=== PATIENT | female | born 1960 | race Two or more races ===

== ENCOUNTER 2020-11-22 15:18 | Emergency (ER) | payer SELFPAY ==
[~2020-11-22] VITALS: Ht 152.4 cm; Wt 61.0 kg
[2020-11-22] MEDS ORDERED: IV NORMAL SALINE 1000ML BAG 1,000 ML IV ONE (15:30)
[2020-11-22 15:36] LABS: BASO % 0 % (0-3); EOS # 0.1 x10^3/uL (0.0-0.7); EOS % 1 % (0-3); HEMATOCRIT 46.8 % (36.0-47.0); HEMOGLOBIN 15.7 g/dL (12.0-15.5); LYMPH # 5.3 x10^3/uL (1.0-4.8); LYMPH % 54 % (24-48); MEAN CORPUSCULAR HEMOGLOBIN 29 pg (25-35); MEAN CORPUSCULAR HGB CONC 34 g/dL (31-37); MEAN CORPUSCULAR VOLUME 87 fL (79-100); MONO # 0.4 x10^3/uL (0.0-1.1); MONO % 4 % (0-9); NEUT % 41 % (31-73); PLATELET COUNT 304 x10^3/uL (140-400); RED BLOOD COUNT 5.41 x10^6/uL (3.50-5.40); RED CELL DISTRIBUTION WIDTH 13.9 % (11.5-14.5); WHITE BLOOD COUNT 9.8 x10^3/uL (4.0-11.0)
--- NOTE | 2020-11-22 15:41 | ED.ADGEN ---
General Adult HPI: HPI: Patient is a 60 year old female brought in by EMS. Original EMS report stated the patient had a seizure. Patient has no seizure history. History primarily provided by daughter since patient is Korean-speaking. Daughter states that this afternoon after he ate lunch patient took an NSAID that she had from [place] for low back pain. Patient then began to have allergic reaction consisting of pruritic rash and hives. Patient has a known history of allergy to ibuprofen. Took Benadryl with improvement but patient was laying on couch and told daughter she "did not feel well" and daughter decided to call EMS. On their arrival blood sugar was 218. Patient has a history of insulin-dependent diabetes. Was started on atorvastatin about 10 days ago. Otherwise been well and has received both of her Covid vaccines Review of Systems: Review of Systems: All other systems within normal limits except for as noted in the HPI Current Medications: Current Medications Medications (Trade) Dose Ordered Sig/Adeline Start Time Stop Time Status Last Admin Dose Admin Acetaminophen (Tylenol) 650 mg PRN Q4HRS PRN 11/22/20 17:45 Al Hydroxide/Mg Hydroxide (Mylanta Plus Xs) 30 ml PRN DAILY PRN 11/22/20 17:45 Albuterol Sulfate (Ventolin Neb Soln) 2.5 mg PRN Q4HRS PRN 11/22/20 17:45 Ceftriaxone Sodium (Rocephin) 1 gm Q24H 11/22/20 18:00 Diphenhydramine HCl (Benadryl) 25 mg PRN Q4HRS PRN 11/22/20 17:45 Docusate Sodium (Colace) 100 mg PRN BID PRN 11/22/20 17:45 Enoxaparin Sodium (Lovenox 40mg Syringe) 40 mg Q24H 11/22/20 21:00 Guaifenesin (Robitussin) 200 mg PRN Q4HRS PRN 11/22/20 17:45 Ondansetron HCl (Zofran) 4 mg PRN Q4HRS PRN 11/22/20 17:45 Ringer's Solution 500 ml @ 1,000 mls/hr 1X ONCE 11/22/20 16:30 11/22/20 17:30 DC 11/22/20 16:30 1,000 MLS/HR Sodium Monofluorophosphate (Fleet Adult) 133 ml PRN DAILY PRN 11/22/20 17:45 Sodium Chloride 1,000 ml @ 100 mls/hr Q10H 11/22/20 17:45 Sodium Chloride (Normal Saline Flush) 3 ml QSHIFT PRN 11/22/20 17:45 Allergies: Allergies: Allergies Coded Allergies Type Severity Reaction Last Updated Verified ibuprofen Allergy Intermediate 11/22/20 Yes Physical Exam: PE: Constitutional: Well developed, well nourished, no acute distress, non-toxic appearance. [] HENT: Normocephalic, atraumatic, bilateral external ears normal, nose normal. [] Eyes: PERRLA, conjunctiva normal, no discharge. [] Neck: No rigidity, supple, no stridor. [] Cardiovascular: Regular rate and rhythm, brisk cap refill [] Lungs & Thorax: Non labored symmetric respirations, no tachypnea or respiratory distress [] Abdomen: Soft, nondistended. Skin: Warm, dry, no erythema, no rash. [] Back: Unremarkable Extremities: No deformities, range of motion grossly intact, no lower extremity edema [] Neurologic: Alert and oriented X 3, no focal deficits noted. [] Psychologic: Affect normal, judgement normal, mood normal. [] Current Patient Data: Labs: Laboratory Tests Test 11/22/20 15:25 11/22/20 16:39 11/22/20 17:37 White Blood Count 9.8 x10^3/uL (4.0-11.0) Red Blood Count 5.41 x10^6/uL (3.50-5.40) H Hemoglobin 15.7 g/dL (12.0-15.5) H Hematocrit 46.8 % (36.0-47.0) Mean Corpuscular Volume 87 fL (79-100) Mean Corpuscular Hemoglobin 29 pg (25-35) Mean Corpuscular Hemoglobin Concent 34 g/dL (31-37) Red Cell Distribution Width 13.9 % (11.5-14.5) Platelet Count 304 x10^3/uL (140-400) Neutrophils (%) (Auto) 41 % (31-73) Lymphocytes (%) (Auto) 54 % (24-48) H Monocytes (%) (Auto) 4 % (0-9) Eosinophils (%) (Auto) 1 % (0-3) Basophils (%) (Auto) 0 % (0-3) Neutrophils # (Auto) 4.0 x10^3/uL (1.8-7.7) Lymphocytes # (Auto) 5.3 x10^3/uL (1.0-4.8) H Monocytes # (Auto) 0.4 x10^3/uL (0.0-1.1) Eosinophils # (Auto) 0.1 x10^3/uL (0.0-0.7) Basophils # (Auto) 0.0 x10^3/uL (0.0-0.2) Sodium Level 143 mmol/L (136-145) Potassium Level 3.2 mmol/L (3.5-5.1) L Chloride Level 105 mmol/L (98-107) Carbon Dioxide Level 23 mmol/L (21-32) Anion Gap 15 (6-14) H Blood Urea Nitrogen 18 mg/dL (7-20) Creatinine 1.2 mg/dL (0.6-1.0) H Estimated GFR (Cockcroft-Gault) 45.7 BUN/Creatinine Ratio 15 (6-20) Glucose Level 304 mg/dL (70-99) H Lactic Acid Level 5.3 mmol/L (0.4-2.0) *H Calcium Level 9.0 mg/dL (8.5-10.1) Phosphorus Level 4.8 mg/dL (2.6-4.7) H Magnesium Level 1.9 mg/dL (1.8-2.4) Total Bilirubin 0.4 mg/dL (0.2-1.0) Aspartate Amino Transferase (AST) 19 U/L (15-37) Alanine Aminotransferase (ALT) 24 U/L (14-59) Alkaline Phosphatase 88 U/L (46-116) Creatine Kinase 58 U/L (26-192) Myoglobin 79 ng/mL (9-82) Troponin I Quantitative < 0.017 ng/mL (0.000-0.055) Total Protein 6.7 g/dL (6.4-8.2) Albumin 3.9 g/dL (3.4-5.0) Albumin/Globulin Ratio 1.4 (1.0-1.7) Thyroid Stimulating Hormone (TSH) 5.547 uIU/mL (0.358-3.74) H Free Thyroxine 1.11 ng/dL (0.76-1.46) Free Triiodothyronine (T3) pg/mL 2.69 pg/mL (2.18-3.98) Ethyl Alcohol Level < 10 mg/dL (0-10) Urine Collection Type Unknown Urine Color Yellow Urine Clarity Cloudy Urine pH 7.0 (<5.0-8.0) Urine Specific Dennison 1.025 (1.000-1.030) Urine Protein >=300 mg/dL (NEG-TRACE) Urine Glucose (UA) >=1000 mg/dL (NEG) Urine Ketones (Stick) Negative mg/dL (NEG) Urine Blood Negative (NEG) Urine Nitrite Negative (NEG) Urine Bilirubin Small (NEG) Urine Urobilinogen Dipstick 1.0 mg/dL (0.2 mg/dL) Urine Leukocyte Esterase Small (NEG) Urine RBC Occ /HPF (0-2) Urine WBC 1-4 /HPF (0-4) Urine Squamous Epithelial Cells Few /LPF Urine Amorphous Sediment Present /HPF Urine Bacteria Few /HPF (0-FEW) Urine Hyaline Casts Few /HPF Urine Mucus Slight /LPF Urine Opiates Screen Neg (NEG) Urine Methadone Screen Neg (NEG) Urine Barbiturates Neg (NEG) Urine Phencyclidine Screen Neg (NEG) Urine Amphetamine/Methamphetamine Neg (NEG) Urine Benzodiazepines Screen Neg (NEG) Urine Cocaine Screen Neg (NEG) Urine Cannabinoids Screen Neg (NEG) Urine Ethyl Alcohol Neg (NEG) POC Venous pH 7.28 (7.32-7.42) L POC Venous pCO2 59 mmHg (41-51) H POC Venous pO2 38 mmHg (20-40) Venous Blood HCO3 28 mmol/L (24-28) POC Venous O2 Saturation (Fransisco) 64 % POC FiO2 21.0 Laboratory Tests 11/22/20 15:25 Laboratory Tests 11/22/20 15:25 Vital Signs: Vital Signs Date Time Temp Pulse Resp B/P (MAP) Pulse Ox O2 Delivery O2 Flow Rate FiO2 11/22/20 16:30 80 18 97/54 (68) 97 Room Air 11/22/20 16:15 97.4 97.4 EKG: EKG: Sinus rhythm, heart rate 85 beats minute, normal axis, no ST elevation or depression, borderline QT interval. [] Heart Score: C/O Chest Pain: No Risk Factors: Risk Factors: DM, Current or recent (<one month) smoker, HTN, HLP, family history of CAD, obesity. Risk Scores: Score 0 - 3: 2.5% MACE over next 6 weeks - Discharge Home Score 4 - 6: 20.3% MACE over next 6 weeks - Admit for Clinical Observation Score 7 - 10: 72.7% MACE over next 6 weeks - Early Invasive Strategies Radiology/Procedures: Radiology/Procedures: [] Course & Med Decision Making: Course & Med Decision Making Pertinent Labs and Imaging studies reviewed. (See chart for details) Patient's temperature gradually coming up from 96 Fahrenheit by mouth. Patient refusing head CT and chest x-ray. Warm fluids and warm blankets. Uncertain etiology of patient's elevated lactate. Will admit to hospitalist for further evaluation and observation [] Chris Disclaimer: Chris Disclaimer: This electronic medical record was generated, in whole or in part, using a voice recognition dictation system. Departure Departure Impression: Primary Impression: Hypothermia Additional Impression: Lactic acidosis Disposition: ADMITTED INPATIENT Admitting Physician: JOHAN Condition: GUARDED Referrals: JOE COOK JR, MD (PCP) Problem Qualifiers IKER DUDLEY MD Nov 22, 2020 15:41
--- NOTE | 2020-11-22 15:49 | EKG ---
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
[2020-11-22 15:56] LABS: CREATININE 1.2 mg/dL (0.6-1.0); GFR 45.7; POTASSIUM 3.2 mmol/L (3.5-5.1)
[2020-11-22 16:10] LABS: ALBUMIN 3.9 g/dL (3.4-5.0); ALBUMIN/GLOBULIN RATIO 1.4 (1.0-1.7); MAGNESIUM 1.9 mg/dL (1.8-2.4); PHOSPHORUS 4.8 mg/dL (2.6-4.7); TOTAL BILIRUBIN 0.4 mg/dL (0.2-1.0); TOTAL PROTEIN 6.7 g/dL (6.4-8.2)
[2020-11-22] MEDS ORDERED: IV RINGERS,LACTATED 500ML 500 ML IV ONE (16:30)
--- NOTE | 2020-11-22 16:47 | PDOC1 ---
History and Physical Date of Admission Date of Admission DATE: 11/22/20 TIME: 16:47 Identification/Chief Complaint Chief Complaint rash, weakness, mild hypothermia, Altered mentation History of Present Illness History of Present Illness 60 year old female brought in by EMS. // EMS report stated the patient had a seizure. but no seizure activity observed Patient has no seizure history. History primarily provided by daughter since patient is Angolan- speaking. this afternoon after she ate lunch patient took an NSAID that she had from [place] for low back pain, then began to have allergic reaction consisting of pruritic rash and hives. // has a known history of allergy to ibuprofen. She took Benadryl with improvement but patient was laying on couch and told daughter she "did not feel well" and daughter decided to call EMS. On arrival blood sugar was 218. known history of insulin-dependent diabetes. started on atorvastatin about 10 days ago. Otherwise been well and has received both of her Covid vaccines daugher denies recent food dye ingestion, shellfish, or nut consumption, no new dietary changes except a low fat diet. Hives have resolved on my visit today to ER , she has mild hypokalemia which may account for her weakness, will replace Past Medical History Musculoskeletal: low back pain, Osteoarthritis Family History Family History: High Cholestrol, Hypertension Social History Smoke: No ALCOHOL: none Drugs: None Current Medications Current Medications Current Medications Sodium Chloride 1,000 ml @ 1,000 mls/hr 1X ONCE IV Last administered on 11/22/20at 16:37; Start 11/22/20 at 15:30; Stop 11/22/20 at 16:29; Status UNV Ringer's Solution 500 ml @ 1,000 mls/hr 1X ONCE IV ; Start 11/22/20 at 16:30; Stop 11/22/20 at 16:59; Status UNV Allergies Allergies: Coded Allergies: ibuprofen (Verified Allergy, Intermediate, 11/22/20) ROS General: YES: Fatigue; No: Chills, Night Sweats, Malaise, Appetite, Other PSYCHOLOGICAL ROS: No: Anxiety, Behavioral Disorder, Concentration difficultie, Decreased libido, Depression, Disorientation, Hallucinations, Hostility, Irritablity, Memory difficulties, Mood Swings, Obsessive thoughts, Physical abuse, Sexual abuse, Sleep disturbances, Suicidal ideation, Other Eyes: No Blurry vision, No Decreased vision, No Double vision, No Dry eyes, No Excessive tearing, No Eye Pain, No Itchy Eyes, No Loss of vision, No Photophobia, No Scotomata, No Uses contacts, No Uses glasses, No Other HEENT: No: Heacaches, Visual Changes, Hearing change, Nasal congestion, Nasal discharge, Oral lesions, Sinus pain, Sore Throat, Epistaxis, Sneezing, Snoring, Tinnitus, Vertigo, Vocal changes, Other ALLERGY AND IMMUNOLOGY: YES: Hives; No: Insect Bite Sensitivity, Itchy/Watery Eyes, Nasal Congestion, Post Nasal Drip, Seasonal Allergies, Other Hematological and Lymphatic: No: Bleeding Problems, Blood Clots, Blood Transfusions, Brusing, Night Sweats, Pallor, Swollen Lymph Nodes, Other ENDOCRINE: No: Breast Changes, Galactorrhea, Hair Pattern Changes, Hot Flashes, Malaise/lethargy, Mood Swings, Palpitations, Polydipsia/polyuria, Skin Changes, Temperature Intolerance, Unexpected Weight Changes, Other Breast: No New/Changing Breast Lumps, No Nipple changes, No Nipple discharge, No Other Respiratory: No: Cough, Hemoptysis, Orthopnea, Pleuritic Pain, Shortness of breath, SOB with excertion, Sputum Changes, Stridor, Tachypnea, Wheezing, Other Cardiovascular: No Chest Pain, No Palpitations, No Orthopnea, No Paroxysmal Noc. Dyspnea, No Edema, No Lt Headedness, No Other Gastrointestinal: No Nausea, No Vomiting, No Abdominal Pain, No Diarrhea, No Constipation, No Melena, No Hematochezia, No Other Genitourinary: No Dysuria, No Frequency, No Incontinence, No Hematuria, No Retention, No Discharge, No Urgency, No Pain, No Flank Pain, No Other, No , No , No , No , No , No , No Musculoskeletal: No Gait Disturbance, No Joint Pain, No Joint Stiffness, No Joint Swelling, No Muscle Pain, No Muscular Weakness, No Pain In:, No Swelling In:, No Other Neurological: No Behavorial Changes, No Bowel/Bladder ControlChng, No Confusion, No Dizziness, No Gait Disturbance, No Headaches, No Impaired Coord/balance, No Memory Loss, No Numbness/Tingling, No Seizures, No Speech Problems, No Tremors, No Visual Changes, No Weakness, No Other Skin: Yes Rash, Yes Skin Lesion Changes Physical Exam Physical Exam no facial edema, no signs of angioedema General: Alert, Oriented X3, Cooperative, No acute distress HEENT: PERRLA, EOMI, Mucous membr. moist/pink Lungs: Clear to auscultation, Normal air movement Heart: S1S2, RRR, no thrills, no gallops, no murmurs, no jug vein distention Breasts: Not examined Abdomen: Normal bowel sounds, Soft Rectal Exam: not examined PELVIC: Examination not indicated Extremities: No cyanosis, No edema, No tenderness/swelling Skin: No rashes Neuro: Normal speech, Strength at 5/5 X4 ext, Normal tone, Sensation intact, Cranial nerves 3-12 NL Psych/Mental Status: Mental status NL, Mood NL Vitals Vitals Vital Signs Date Time Temp Pulse Resp B/P (MAP) Pulse Ox O2 Delivery O2 Flow Rate FiO2 11/22/20 15:20 96.0 86 12 171/102 (125) Room Air 96.0 Labs Labs Laboratory Tests Test 11/22/20 15:25 White Blood Count 9.8 x10^3/uL (4.0-11.0) Red Blood Count 5.41 x10^6/uL (3.50-5.40) Hemoglobin 15.7 g/dL (12.0-15.5) Hematocrit 46.8 % (36.0-47.0) Mean Corpuscular Volume 87 fL (79-100) Mean Corpuscular Hemoglobin 29 pg (25-35) Mean Corpuscular Hemoglobin Concent 34 g/dL (31-37) Red Cell Distribution Width 13.9 % (11.5-14.5) Platelet Count 304 x10^3/uL (140-400) Neutrophils (%) (Auto) 41 % (31-73) Lymphocytes (%) (Auto) 54 % (24-48) Monocytes (%) (Auto) 4 % (0-9) Eosinophils (%) (Auto) 1 % (0-3) Basophils (%) (Auto) 0 % (0-3) Neutrophils # (Auto) 4.0 x10^3/uL (1.8-7.7) Lymphocytes # (Auto) 5.3 x10^3/uL (1.0-4.8) Monocytes # (Auto) 0.4 x10^3/uL (0.0-1.1) Eosinophils # (Auto) 0.1 x10^3/uL (0.0-0.7) Basophils # (Auto) 0.0 x10^3/uL (0.0-0.2) Sodium Level 143 mmol/L (136-145) Potassium Level 3.2 mmol/L (3.5-5.1) Chloride Level 105 mmol/L (98-107) Carbon Dioxide Level 23 mmol/L (21-32) Anion Gap 15 (6-14) Blood Urea Nitrogen 18 mg/dL (7-20) Creatinine 1.2 mg/dL (0.6-1.0) Estimated GFR (Cockcroft-Gault) 45.7 BUN/Creatinine Ratio 15 (6-20) Glucose Level 304 mg/dL (70-99) Lactic Acid Level 5.3 mmol/L (0.4-2.0) Calcium Level 9.0 mg/dL (8.5-10.1) Phosphorus Level 4.8 mg/dL (2.6-4.7) Magnesium Level 1.9 mg/dL (1.8-2.4) Total Bilirubin 0.4 mg/dL (0.2-1.0) Aspartate Amino Transf (AST/SGOT) 19 U/L (15-37) Alanine Aminotransferase (ALT/SGPT) 24 U/L (14-59) Alkaline Phosphatase 88 U/L (46-116) Creatine Kinase 58 U/L (26-192) Myoglobin 79 ng/mL (9-82) Troponin I Quantitative < 0.017 ng/mL (0.000-0.055) Total Protein 6.7 g/dL (6.4-8.2) Albumin 3.9 g/dL (3.4-5.0) Albumin/Globulin Ratio 1.4 (1.0-1.7) Thyroid Stimulating Hormone (TSH) 5.547 uIU/mL (0.358-3.74) Ethyl Alcohol Level < 10 mg/dL (0-10) Laboratory Tests Test 11/22/20 15:25 White Blood Count 9.8 x10^3/uL (4.0-11.0) Red Blood Count 5.41 x10^6/uL (3.50-5.40) Hemoglobin 15.7 g/dL (12.0-15.5) Hematocrit 46.8 % (36.0-47.0) Mean Corpuscular Volume 87 fL (79-100) Mean Corpuscular Hemoglobin 29 pg (25-35) Mean Corpuscular Hemoglobin Concent 34 g/dL (31-37) Red Cell Distribution Width 13.9 % (11.5-14.5) Platelet Count 304 x10^3/uL (140-400) Neutrophils (%) (Auto) 41 % (31-73) Lymphocytes (%) (Auto) 54 % (24-48) Monocytes (%) (Auto) 4 % (0-9) Eosinophils (%) (Auto) 1 % (0-3) Basophils (%) (Auto) 0 % (0-3) Neutrophils # (Auto) 4.0 x10^3/uL (1.8-7.7) Lymphocytes # (Auto) 5.3 x10^3/uL (1.0-4.8) Monocytes # (Auto) 0.4 x10^3/uL (0.0-1.1) Eosinophils # (Auto) 0.1 x10^3/uL (0.0-0.7) Basophils # (Auto) 0.0 x10^3/uL (0.0-0.2) Sodium Level 143 mmol/L (136-145) Potassium Level 3.2 mmol/L (3.5-5.1) Chloride Level 105 mmol/L (98-107) Carbon Dioxide Level 23 mmol/L (21-32) Anion Gap 15 (6-14) Blood Urea Nitrogen 18 mg/dL (7-20) Creatinine 1.2 mg/dL (0.6-1.0) Estimated GFR (Cockcroft-Gault) 45.7 BUN/Creatinine Ratio 15 (6-20) Glucose Level 304 mg/dL (70-99) Lactic Acid Level 5.3 mmol/L (0.4-2.0) Calcium Level 9.0 mg/dL (8.5-10.1) Phosphorus Level 4.8 mg/dL (2.6-4.7) Magnesium Level 1.9 mg/dL (1.8-2.4) Total Bilirubin 0.4 mg/dL (0.2-1.0) Aspartate Amino Transf (AST/SGOT) 19 U/L (15-37) Alanine Aminotransferase (ALT/SGPT) 24 U/L (14-59) Alkaline Phosphatase 88 U/L (46-116) Creatine Kinase 58 U/L (26-192) Myoglobin 79 ng/mL (9-82) Troponin I Quantitative < 0.017 ng/mL (0.000-0.055) Total Protein 6.7 g/dL (6.4-8.2) Albumin 3.9 g/dL (3.4-5.0) Albumin/Globulin Ratio 1.4 (1.0-1.7) Thyroid Stimulating Hormone (TSH) 5.547 uIU/mL (0.358-3.74) Ethyl Alcohol Level < 10 mg/dL (0-10) VTE Prophylaxis Ordered VTE Prophylaxis Devices: Yes VTE Pharmacological Prophylaxi: Yes Assessment/Plan Assessment/Plan impression ACUTE Allergic reaction with rash, urticaria mild hypothermia, follow generalized weakness lactic acidosis, unclear etiology, exclude bacteremia mild hypokalemia plan ADMIT IV pepsid 20 mg bid avoid NSAIDS IN FUTURE Blood cultures serial lactic acid iv fluids procalcitonin cxr Justifications for Admission Other Justification MARY CASTRO MD Nov 22, 2020 16:47
[2020-11-22 16:49] LABS: BILIRUBIN,URINE SMALL (NEG); CLARITY,URINE CLOUDY; COLOR,URINE YELLOW; NITRITE,URINE NEGATIVE (NEG); PROTEIN,URINE >=300 mg/dL (NEG-TRACE)
[2020-11-22 16:56] LABS: BARBITURATES NEG (NEG); BENZODIAZEPINES NEG (NEG); CANNABINOIDS NEG (NEG); COCAINE NEG (NEG); HYALINE CASTS, URINE FEW /HPF; METHADONE NEG (NEG); OPIATES NEG (NEG); PHENCYCLIDINE NEG (NEG)
[2020-11-22 16:57] LABS: AMPHETAMINE/METHAMPHETAMINE NEG (NEG)
[2020-11-22 16:58] LABS: RBC,URINE OCC /HPF (0-2)
[2020-11-22 17:00] LABS: AMORPHOUS SEDIMENT,UR PRESENT /HPF; BACTERIA,URINE FEW /HPF (0-FEW)
[2020-11-22 17:00] LABS: FREE T4 1.11 ng/dL (0.76-1.46)
[2020-11-22] MEDS ORDERED: ACETAMINOPHEN 325 MG TABLET. PO PRN ×2 (17:00→17:45)
[2020-11-22] MEDS ORDERED: IV NORMAL SALINE 1000ML BAG 1,000 ML IV SCH ×2 (17:00→17:45)
[2020-11-22] MEDS ORDERED: ONDANSETRON PF 4 MG/2 ML VIAL. IV PRN ×2 (17:00→17:45)
[2020-11-22 17:37] LABS: ISTAT BE VENOUS 1 mmol/L (0-3); ISTAT HCO3 VEN 28 mmol/L (24-28); ISTAT PCO2 VEN 59 mmHg (41-51); ISTAT PH VEN 7.28 (7.32-7.42); ISTAT PO2 VEN 38 mmHg (20-40); ISTAT SAT O2 VEN 64 %; ISTAT TCO2 VEN 29 mmol/L (21-32)
[2020-11-22] MEDS ORDERED: ALBUTEROL SULFATE 2.5 MG/3 ML NEBU. NEB PRN (17:45)
[2020-11-22] MEDS ORDERED: guaiFENesin ORAL 200 MG/10 ML LIQUID. PO PRN (17:45)
[2020-11-22] MEDS ORDERED: diphenhydrAMINE 50 MG/ML VIAL IVP PRN (17:45)
[2020-11-22] MEDS ORDERED: MAG HYDROX/ALUMINUM HYD/SIMETH 30 ML ORAL.SUSP PO PRN (17:45)
[2020-11-22] MEDS ORDERED: SODIUM PHOSPHATES 19/7GM 133 ML ENEMA. PR PRN (17:45)
[2020-11-22] MEDS ORDERED: DOCUSATE SODIUM 100 MG CAPSULE. PO PRN (17:45)
[2020-11-22] MEDS ORDERED: 0.9 % SODIUM CHLORIDE 10 ML DISP.SYRIN. IV PRN (17:45)
[2020-11-22] MEDS ORDERED: cefTRIAXone IV Push 1 GM VIAL. IVP SCH (18:00)
[2020-11-22] MEDS ORDERED: DEXTROSE 50% 25 GM / 50ML DISP.SYRIN. IV PRN (18:00)
[2020-11-22 20:42] VITALS: BP 113/62
[2020-11-22] MEDS ORDERED: ENOXAPARIN 40 MG/0.4 ML SYRINGE. SQ SCH (21:00)
[2020-11-23 04:27] LABS: THYROXINE 6.4 ug/dL (4.5-12.0)
[2020-11-23] MEDS ORDERED: INSULIN LISPRO 300 UNITS/3 ML VIAL. SQ SCH (08:00)
== END 2020-11-22 21:15 | disposition left against medical advice (07) ==
LOC: ER 15:18 → 2 SOUTH 16:40 → UNDOADMOB 16:40
DX: T68.XXXA Hypothermia, initial encounter (principal); E87.2 Acidosis; Z88.6 Allergy status to analgesic agent
CPT/HCPCS: 36415; 80053; 80307; 81001; 82550; 82803; 83605; 83735; 83874; 84100; 84145; 84436; 84439; 84443; 84480; 84481; 84484; 85025; 86140; 87040; 87086; 93005; 96360; 99285; G0480; J7030; J7120